=== PATIENT | male | born 1970 | race Caucasian/White ===

== ENCOUNTER 2024-07-27 15:45 | Emergency (ER) | payer OTHER ==
--- OUTSIDE RECORDS SUMMARY | 2024-07-27 15:48 | XMS REPORT | Continuity of Care Document ---
Author Name Unknown Address [address] [facility] [address] [id number] [facility] thconnect Address [address] [facility] [address] [place] [address] Care Team Providers Care Accounts Payables Clerk Name Role Phone PEDRO KENNEDY Attending Clinician UnavailKALLI Hassan Attending Clinician Unavailable EMIR HAJI Attending Clinician Unavailable MILE LIEBERMAN Attending Clinician Unavailable Alma Attending Clinician Unavailable Gaye Attending Clinician Unavailable Alma Admitting Clinician Unavailable Gaye Admitting Clinician Unavailable Payers Payer Name Policy Type Policy Number Effective Date Expirati on Date Source [facility] [id number] 2018 00:00:00 Problems Condition Name Condition Details Condition Category Status Onset Date Resolution Date Last Treatment Date Treating Clinician Comments Source Acute exacerbati on of chronic obstructiv e pulmonary disease Acute Exacerbati on of Chronic Obstructiv e Pulmonary Disease Problem Active 2023-06 00:00: 00 [facility] Mild chronic obstructiv e pulmonary disease Mild Chronic Obstructiv e Pulmonary Disease Problem Active 2023-06 00:00: 00 [facility] Snoring Snoring Problem Active 2023-06 00:00: 00 [facility] Acute cough Acute Cough Problem Active 2023-06 00:00: 00 [facility] Wheezing Wheezing Problem Active - 00:00: 00 [facility] Cough Cough Problem Active 09-27 00:00: 00 [facility] Acute bronchitis Acute Bronchitis Problem Active 2- 00:00: 00 [facility] Acute bacterial bronchitis Acute Bacterial Bronchitis Problem Active 2022-06- 00:00: 00 [facility] Cyst of skin Cyst of Skin Problem Active 2022-06 00:00: 00 [facility] Social History Smoking Status Start Date Stop Date Source Never Smoker [facility] Medications Ordered Medication Name Filled Medication Name Start Date Stop Date Current Medication? Ordering Clinician Indication Dosage Frequency Signature (SIG) Comments Components Source albuterol sulfate 2.5 mg/3 mL (0.083 %) solution for nebulizatio n Inhale 3 mL every 6 hours by nebulizatio n route as needed. albuterol sulfate 2.5 mg/3 mL (0.083 %) solution for nebulizatio n Inhale 3 mL every 6 hours by nebulizatio n route as needed. No 3mL Q6H albuterol sulfate 2.5 mg/3 mL (0.083 %) solution for nebulizati on Inhale 3 mL every 6 hours by nebulizati on route as needed. [facility] doxycycline monohydrate 100 mg capsule Take 1 capsule twice a day by oral route for 10 days. doxycycline monohydrate 100 mg capsule Take 1 capsule twice a day by oral route for 10 days. No 1capsul e(s) BID doxycyclin e monohydrat e 100 mg capsule Take 1 capsule twice a day by oral route for 10 days. [facility] fluticasone 500 mcg-salmete rol 50 mcg/dose blistr powdr for inhalation Inhale 1 puff twice a day by inhalation route for 90 days. fluticasone 500 mcg-salmete rol 50 mcg/dose blistr powdr for inhalation Inhale 1 puff twice a day by inhalation route for 90 days. No 1puff(s ) BID fluticason e 500 mcg-salmet leonid 50 mcg/dose blistr powdr for inhalation Inhale 1 puff twice a day by inhalation route for 90 days. [facility] prednisone 20 mg tablet Take 1 tablet every day by oral route for 5 days. prednisone 20 mg tablet Take 1 tablet every day by oral route for 5 days. No 1 Q1D prednisone 20 mg tablet Take 1 tablet every day by oral route for 5 days. [facility] Immunizations Ordered Immunization Name Filled Immunization Name Date Status Comments Source COVID-19, mRNA, LNP-S, bivalent booster, PF, 30 mcg/0.3 mL dose (SecondLeap) - ML COVID-19, mRNA, LNP-S, bivalent booster, PF, 30 mcg/0.3 mL dose (SecondLeap) - ML Unknown Completed [facility] Vital Signs Vital Name Observation Time Observation Value Comments S ource Body Weight 2024-06-13 00:00:00 3352 [oz_av] [facility] BMI (Body Mass Index) 2024-06-13 00:00:00 30.1 kg/m2 [facility] BP Diastolic 2024-06-13 00:00:00 76 mm[Hg] [facility] BP Systolic 2024-06-13 00:00:00 143 mm[Hg] [facility] Height 2024-06-13 00:00:00 70 [in_i] [facility] BMI (Body Mass Index) 2024-04-19 00:00:00 30.1 kg/m2 [facility] BP Diastolic 2024-04-19 00:00:00 85 mm[Hg] [facility] Body Weight 2024-04-19 00:00:00 3360 [oz_av] [facility] BP Systolic 2024-04-19 00:00:00 143 mm[Hg] [facility] Height 2024-04-19 00:00:00 70 [in_i] [facility] Body Weight 2023-12-03 00:00:00 198 [lb_av] [facility] BMI (Body Mass Index) 2023-12-03 00:00:00 28.4 kg/m2 [facility] BP Diastolic 2023-12-03 00:00:00 82 mm[Hg] [facility] Height 2023-12-03 00:00:00 70 [in_i] [facility] BP Systolic 2023-12-03 00:00:00 121 mm[Hg] [facility] Body Weight 2023-11-02 00:00:00 208 [lb_av] [facility] BP Systolic 2023-11-02 00:00:00 125 mm[Hg] [facility] BP Diastolic 2023-11-02 00:00:00 87 mm[Hg] [facility] Height 2023-11-02 00:00:00 70 [in_i] [facility] BMI (Body Mass Index) 2023-11-02 00:00:00 29.8 kg/m2 [facility] Height 2023-10-15 00:00:00 70 [in_i] [facility] BP Systolic 2023-10-15 00:00:00 137 mm[Hg] [facility] BMI (Body Mass Index) 2023-10-15 00:00:00 30.1 kg/m2 [facility] Body Weight 2023-10-15 00:00:00 3351 [oz_av] [facility] BP Diastolic 2023-10-15 00:00:00 88 mm[Hg] [facility] BP Systolic 2023-09-28 00:00:00 138 mm[Hg] [facility] Height 2023-09-28 00:00:00 70 [in_i] [facility] Body Weight 2023-09-28 00:00:00 3335 [oz_av] [facility] BP Diastolic 2023-09-28 00:00:00 88 mm[Hg] [facility] BMI (Body Mass Index) 2023-09-28 00:00:00 29.9 kg/m2 [facility] Body Weight 2023-08-04 00:00:00 3376 [oz_av] [facility] BP Diastolic 2023-08-04 00:00:00 82 mm[Hg] [facility] BMI (Body Mass Index) 2023-08-04 00:00:00 30.3 kg/m2 [facility] Height 2023-08-04 00:00:00 70 [in_i] [facility] BP Systolic 2023-08-04 00:00:00 127 mm[Hg] [facility] Body Weight 2023-04-29 00:00:00 3305 [oz_av] [facility] BMI (Body Mass Index) 2023-04-29 00:00:00 29.6 kg/m2 [facility] Height 2023-04-29 00:00:00 70 [in_i] [facility] BP Systolic 2023-04-29 00:00:00 146 mm[Hg] [facility] BP Diastolic 2023-04-29 00:00:00 92 mm[Hg] [facility] BP Diastolic 2023-01-13 00:00:00 81 mm[Hg] [facility] Height 2023-01-13 00:00:00 70 [in_i] [facility] BMI (Body Mass Index) 2023-01-13 00:00:00 28.8 kg/m2 [facility] BP Systolic 2023-01-13 00:00:00 131 mm[Hg] [facility] Body Weight 2023-01-13 00:00:00 3208 [oz_av] [facility] BP Diastolic 2022-12-29 00:00:00 75 mm[Hg] [facility] Height 2022-12-29 00:00:00 70 [in_i] [facility] BMI (Body Mass Index) 2022-12-29 00:00:00 28.4 kg/m2 [facility] BP Systolic 2022-12-29 00:00:00 125 mm[Hg] [facility] Body Weight 2022-12-29 00:00:00 3168 [oz_av] [facility] BP Diastolic 2022-06-30 00:00:00 87 mm[Hg] [facility] Height 2022-06-30 00:00:00 70 [in_i] [facility] BMI (Body Mass Index) 2022-06-30 00:00:00 31.9 kg/m2 [facility] BP Systolic 2022-06-30 00:00:00 135 mm[Hg] [facility] Body Weight 2022-06-30 00:00:00 3560 [oz_av] [facility] BP Diastolic 2022-06-02 00:00:00 75 mm[Hg] [facility] Height 2022-06-02 00:00:00 70 [in_i] [facility] BMI (Body Mass Index) 2022-06-02 00:00:00 30.5 kg/m2 [facility] BP Systolic 2022-06-02 00:00:00 131 mm[Hg] [facility] Body Weight 2022-06-02 00:00:00 3400 [oz_av] [facility] Procedures Procedure Date / Time Performed Performing Clinician Source CT, chest, w/o contrast 2023-12-03 00:00:00 [facility] ECG WITH INTERPRETATION 12 LEADS 2023-10-15 00:00:00 [facility] XR, chest, 2 view 2023-10-15 00:00:00 [facility] XR, chest, 2 view 2023-09-28 00:00:00 [facility] XR, chest, 2 view 2022-12-29 00:00:00 [facility] XR, chest, 2 view 2022-06-02 00:00:00 [facility] Colonoscopy [facility] Encounters Start Date/Time End Date/Time Encounter Type Admission Type Attending Clinicians Care Facility Care Department Encounter ID Source 2024-07-15 21:30:00 Inpatient PEDRO MCCONNELL [facility] [id number] [facility] 2024-07-12 19:30:00 Inpatient ROEL PEDRO KENNEDY [facility] [id number] [facility] 2024-02-08 19:30:00 Inpatient KALLI VEGA [facility] [id number] [facility] 2023-12-17 13:00:00 Inpatient ROEL CINDI CHACKO [facility] [id number] [facility] 2023-11-17 08:45:00 Inpatient ROEL HAJI EMIR [facility] [id number] [facility] 2024-06-13 00:00:00 2024-06-13 00:00:00 Pedro Kennedy, MORGUE ATTENDANT: [address], [address], [place] [address] , [facility] 2024-04-19 00:00:00 2024-04-19 00:00:00 Mile Lieberman PA-C: [address], [address], [place] [address] , Ph. [facility] [id number] [facility] 2023-12-03 00:00:00 2023-12-03 00:00:00 Kalli Turner MD: [address] [place] [address] , Ph. [facility] 0613 [facility] 2023-12-01 06:42:00 2023-12-01 06:42:00 Outpatient EMIR HERNANDEZ [facility] [id number] [facility] 2023-11-02 00:00:00 2023-11-02 00:00:00 Emir Haji DO: [address], [address], [place] [address] , Ph. [phone] [facility] 0513 [facility] 2023-10-15 11:48:00 2023-10-15 11:48:00 Outpatient MILE LIU [facility] [id number] [facility] 2023-10-15 00:00:00 2023-10-15 00:00:00 Mile Lieberman PA-C: [address], [address], [place] [address] , Ph. [facility] 0425 [facility] 2023-09-28 00:00:00 2023-09-28 00:00:00 Pedro Kennedy, MORGUE ATTENDANT: [address] [facility] [address], [address], [place] [address] , Ph. Howie_M MMG [facility] [id number] [facility] 2023-08-04 00:00:00 2023-08-04 00:00:00 [place] [id number] [facility] 2023-08-04 00:00:00 2023-08-04 00:00:00 Pedro Kennedy, MORGUE ATTENDANT: [address] [facility], [address], [place] [address] , Ph. [facility] [id number] [facility] 2023-08-03 00:00:00 2023-08-03 00:00:00 [place] [id number] [facility] 2023-04-30 00:00:00 2023-04-30 00:00:00 Outpatient Hawkins_M MMG MMG [id number] [facility] 2023-04-29 00:00:00 2023-04-29 00:00:00 Pedro Kennedy, MORGUE ATTENDANT: [address] [facility], [address], [place] [address] , Ph. [facility] [id number] [facility] 2023-04-28 00:00:00 2023-04-28 00:00:00 Outpatient Koudela_A MMG MMG [id number] [facility] 2023-04-28 00:00:00 2023-04-28 00:00:00 Outpatient Koudela_A MMG MMG [id number] [facility] 2023-03-10 00:00:00 2023-03-10 00:00:00 Outpatient Koudela_A MMG MMG [id number] [facility] 2023-01-21 00:00:00 2023-01-21 00:00:00 Outpatient Koudela_A MMG MMG [id number] [facility] 2023-01-21 00:00:00 2023-01-21 00:00:00 Outpatient Koudela_A MMG MMG [id number] [facility] 2023-01-21 00:00:00 2023-01-21 00:00:00 Outpatient Koudela_A MMG MMG [id number] [facility] 2023-01-13 00:00:00 2023-01-13 00:00:00 Outpatient Koudela_A MMG MMG [id number] [facility] 2023-01-13 00:00:00 2023-01-13 00:00:00 Mile Lieberman PA-C: [address] [facility], [address] [address] , Ph. MMG [facility] [id number] [facility] 2023-01-12 00:00:00 2023-01-12 00:00:00 Outpatient Hawkins_M MMG MMG [id number] [facility] 2022-12-29 15:25:00 2022-12-29 15:25:00 Outpatient MILE LIU [facility] [id number] [facility] 2022-12-29 00:00:00 2022-12-29 00:00:00 Outpatient Hawkins_M MMG MMG [id number] [facility] 2022-12-29 00:00:00 2022-12-29 00:00:00 Mile Lieberman PA-C: [address] [facility], [address], [place] [address] , Ph. MMG [facility] [id number] [facility] 2022-06-30 00:00:00 2022-06-30 00:00:00 Outpatient Hawkins_M MMG MMG [id number] [facility] 2022-06-30 00:00:00 2022-06-30 00:00:00 Pedronathalia Dinero Howie, MORGUE ATTENDANT: [address] [facility] [address], [place] [address] , Ph. MMG [facility] [id number] [facility] 2022-06-29 00:00:00 2022-06-29 00:00:00 Outpatient Hawkins_M MMG MMG [id number] [facility] 2022-06-20 00:00:00 2022-06-20 00:00:00 Outpatient Hawkins_M MMG MMG [id number] [facility] 2022-06-20 00:00:00 2022-06-20 00:00:00 Outpatient Hawkins_M MMG MMG [id number] [facility] 2022-06-02 12:40:00 2022-06-02 12:40:00 Outpatient PEDRO VELASCO [facility] [id number] [facility] 2022-06-02 00:00:00 2022-06-02 00:00:00 Outpatient Minkins_M MMG MMG [id number] [facility] 2022-06-02 00:00:00 2022-06-02 00:00:00 Pedro Kennedy, MORGUE ATTENDANT: [address] [facility] [address], [place] [address] , Ph. MMG [facility] [id number] [facility] Results Test Description Test Time Test Comments Results Result Co mments Source [facility] and SARS-CoV+SARS-CoV-2 (COVID- 19) Ag panel - Upper respiratory specimen byRapid [id number] 16:43:06 * Test Item Value Reference Range Interpretation Comme nts RAPID SARS COV (test code = RAPID SARS COV) negative RAPID FLU A (test code = RAP ID FLU A) negative RAPID FLU B (test code = RAP ID FLU B) negative [facility] and SARS-CoV+SARS-CoV-2 (COVID- 19) Ag panel - Upper respiratory specimen byRapid [id number] 15:53:00 * Test Item Value Reference Range Interpretation Comme nts RAPID SARS COV (test code = RAPID SARS COV) negative RAPID FLU A (test code = RAP ID FLU A) negative RAPID FLU B (test code = RAP ID FLU B) negative [facility] and B and SARS-CoV+SARS-CoV-2 (COVID- 19) Ag panel - Upper respiratory specimen byRapid [id number] 12:25:39 * Test Item Value Reference Range Interpretation Comme nts RAPID SARS COV (test code = RAPID SARS COV) negative RAPID FLU A (test code = RAP ID FLU A) negative RAPID FLU B (test code = RAP ID FLU B) negative [facility] st[facility] A, [id number] 12:25:32* Test Item Value Reference Range Interpretation Comme nts Strep Result (test code = St rep Result) negative [facility]
[2024-07-27 16:45] LABS: SARS-CoV-2 Antigen CONTROL BLUE LINE VIS/BG OK; SARS-CoV-2 Antigen Rapid Res Negative (Negative)
--- NOTE | 2024-07-27 16:59 | RAD REPORT ---
EXAMINATION: TWO VIEW CHEST XR CLINICAL INDICATION: Male, 53 years old. [facility] MAIN COUGH Bed Name: 3 TECHNIQUE: 2 view radiographs of the chest were performed. COMPARISON: No prior exam. FINDINGS: The lungs are well inflated and clear. No pneumothorax or sizable effusion. The heart is normal in si ze. Mediastinal contours are unremarkable. IMPRESSION: No acute or significant abnormalities.
--- NOTE | 2024-07-27 17:15 | ER ---
Nurse's Notes [facility] Name: Homer Cuenca Age: 53 yrs Sex: Male : 1970 Arrival Date: 07/27/2024 Time: 15:45 Bed IW1 Private MD: Diagnosis: Influenza due to identified novel influenza A virus Presentation: 07/27 15:53 Chief complaint: Patient states: Cough onset Thursday. Pt states that his has the cm10 flu. Pt states that his cough not getting better. PT reports pain in his chest when he coughs. Coronavirus screen: Client denies travel out of the [place] in the last 14 days. Ebola Screen: Patient denies travel to an Ebola-affected area in the 21 days before illness onset. Initial Sepsis Screen: Does the patient meet any 2 criteria? HR > 90 bpm. Does the patient have a suspected source of infection? No. Patient's initial sepsis screen is negative. Risk Assessment: Do you want to hurt yourself or someone else? Patient reports no desire to harm self or others. Onset of symptoms was July 24, 2024. 15:53 Method Of Arrival: Ambulatory cm10 15:53 Acuity: KATRINA 3 cm10 Triage Assessment: 15:55 General: Appears in no apparent distress. uncomfortable, Behavior is calm, cooperative. cm10 Pain: Complains of pain in chest Pain does not radiate. Pain currently is 8 out of 10 on a pain scale. Neuro: No deficits noted. Level of Consciousness is awake, alert, obeys commands, Oriented to person, place, time, situation, Appropriate for age. Respiratory: No deficits noted. Reports cough that is pain with cough pain with respiration Airway is patent Respiratory effort is even, unlabored, Respiratory pattern is regular, symmetrical. Historical: - Allergies: 15:54 No Known Allergies; cm10 - PMHx: 15:54 Asthma; Chronic obstructive lung disease; cm10 - Immunization history:: Adult Immunizations unknown. - Infectious Disease History:: Denies. - Social history:: Smoking status: unknown. Screenin:33 [facility] ED Fall Risk Assessment (Adult) History of falling in the last 3 months, iw including since admission No falls in past 3 months (0 pts) Confusion or Disorientation No (0 pts) Intoxicated or Sedated No (0 pts) Impaired Gait No (0 pts) Mobility Assist Device Used No (0 pt) Altered Elimination No (0 pt) Score/Fall Risk Level 0 - 2 = Low Risk Oriented to surroundings, Maintained a safe environment. Abuse screen: Denies threats or abuse. Denies injuries from another. Nutritional screening: No deficits noted. Tuberculosis screening: No symptoms or risk factors identified. Assessment: 17:00 General: Appears in no apparent distress. Behavior is calm, cooperative. Pain: Pain iw began. Pain: Complains of pain in chest. Cardiovascular: Patient's skin is warm and dry. Respiratory: Reports cough that is Respiratory effort is even, unlabored, Respiratory pattern is regular. GI: Abdomen is non-distended. Vital Signs: 15:53 BP 147 / 92; Pulse 112; Resp 19; Temp 100(O); Pulse Ox 95% on R/A; Weight 92.99 kg; cm10 Height 5 ft. 10 in. ; Pain 8/10; 15:53 Body Mass Index 29.41 (92.99 kg, 177.8 cm) cm10 15:53 Pain Scale: Adult cm10 ED Course: 15:48 Patient arrived in ED. al6 15:50 Thi Webb [facility]-C [facility]. kb 15:50 Jhon Escalante MD is Attending Physician. kb 15:54 Triage completed. cm10 15:55 Arm band placed on right wrist. Patient placed in waiting room. cm10 16:03 Strep Sent. cm10 16:03 SARS RAPID Sent. cm10 16:03 Flu Sent. cm10 16:03 COVID swab sent to lab. Flu and/or RSV swab sent to lab. Strep swab sent to lab. cm10 16:13 Chest Pa And Lat (2 Views) XRAY In Process Unspecified. EDMS 17:33 Radha Krueger, RN is Primary Nurse. iw 17:33 No provider procedures requiring assistance completed. Patient did not have IV access iw during this emergency room visit. Patient maintains SpO2 saturation greater than 95% on room air. Administered Medications: No medications were administered Medication: 17:00 VIS not applicable for this client. iw Outcome: 17:15 Discharge ordered by . kb 17:34 Discharged to home ambulatory, iw 17:34 Condition: good 17:34 Discharge instructions given to patient, Instructed on discharge instructions, follow up and referral plans. Demonstrated understanding of instructions, follow-up care, 17:34 Patient left the ED. iw Signatures: Dispatcher [employer] Thi Ferreira, IVONNE-C STAKE SETTER-Radha Deluca RN RN iw Martinez, Clarissa, RN RN cmChristine Pardo6
--- NOTE | 2024-07-27 17:15 | EDPHYS ---
Physician Documentation [facility] Name: Homer Cuenca Age: 53 yrs Sex: Male : 1970 Arrival Date: 07/27/2024 Time: 15:45 Bed IW1 Private MD: ED Physician Jhon Escalante HPI: 07/27 18:14 This 53 yrs old Male presents to ER via Ambulatory with complaints of Flu Symptoms, kb Fever, Chest Pain. 18:14 Pt is a 53 year old male who presents for cough, congestion, pain with cough, fever, kb chills and bodyaches that started 4 days ago. has also been sick with similar symptoms. Historical: - Allergies: 15:54 No Known Allergies; cm10 - PMHx: 15:54 Asthma; Chronic obstructive lung disease; cm10 - Immunization history:: Adult Immunizations unknown. - Infectious Disease History:: Denies. - Social history:: Smoking status: unknown. ROS: 17:53 Constitutional: As per HPI kb Exam: 17:53 Constitutional: This is a well developed, well nourished patient who is awake, alert, kb and in no acute distress. Head/Face: Normocephalic, atraumatic. ENT: Moist Mucous membranes Cardiovascular: Regular rate Respiratory: Respirations even and unlabored. No increased work of breathing. Talking in full sentences Abdomen/GI: Soft, non-tender. No distention Skin: Warm, dry with normal turgor. Normal color. MS/ Extremity: Pulses equal, no cyanosis. Neurovascular intact. Full, normal range of motion. Neuro: Awake and alert, GCS 15, oriented to person, place, time, and situation. Vital Signs: 15:53 BP 147 / 92; Pulse 112; Resp 19; Temp 100(O); Pulse Ox 95% on R/A; Weight 92.99 kg; cm10 Height 5 ft. 10 in. ; Pain 8/10; 15:53 Body Mass Index 29.41 (92.99 kg, 177.8 cm) cm10 15:53 Pain Scale: Adult cm10 MDM: 15:50 Medical Screening Exam initiated kb 17:53 Data reviewed: vital signs, nurses notes. kb 18:14 Differential diagnosis: flu, covid, uri, strep, pneumonia, bronchitis. I considered the kb following discharge prescriptions or medication management in the emergency department I discussed and recommended Over The Counter medications, Antibiotics: At this time antibiotics are not recommended, Antivirals: At this time, antivirals are not recommended. Historians other than the Patient: Spouse/Significant Other: . Counseling: I had a detailed discussion with the patient and/or guardian regarding the historical points, exam findings, and any diagnostic results supporting the discharge/admit diagnosis, the presence of at least one elevated blood pressure reading (>120/80) during this emergency department visit, lab results, radiology results, the need for outpatient follow up, a family practitioner, to return to the emergency department if symptoms worsen or persist or if there are any questions or concerns that arise at home. 07/27 15:58 Order name: Flu; Complete Time: 16:46 cm10 07/27 15:58 Order name: SARS RAPID; Complete Time: 16:46 cm10 07/27 15:58 Order name: Strep cm10 07/27 16:48 Order name: Throat Culture EDMS 07/27 15:58 Order name: Chest Pa And Lat (2 Views) XRAY; Complete Time: 17:00 cm10 Administered Medications: No medications were administered Disposition Summary: 07/27/24 17:15 Discharge Ordered Notes: Location: Home kb Condition: Stable kb Diagnosis - Influenza due to identified novel influenza A virus kb Followup: kb - With: Emergency Department - When: As needed - Reason: Worsening of condition Followup: kb - With: Private Physician - When: 2 - 3 days - Reason: Recheck today's complaints, Continuance of care, Re-evaluation by your physician Discharge Instructions: - Discharge Summary Sheet kb - Influenza, Adult, [id number] kb Forms: - Medication Reconciliation Form kb - Antibiotic Education kb - Prescription Opioid Use kb - Patient Portal Instructions kb - Leadership Thank You Letter kb Addendum: 07/29/2024 23:22 Co-signature as Attending Physician, Jhon Escalante MD I agree with the assessment and c alexandre plan of care. Signatures: Dispatcher [employer] Thi Ferreira, DECORATING KILN OPERATOR-C DECORATING KILN OPERATOR-Jhon Patino MD MD cha Martinez, Clarissa, RN RN cm10
[2024-07-27 17:52] VITALS: BP 147/92; TEMP 100; O2SAT 95
== END 2024-07-27 17:34 | disposition home or self-care (01) ==
LOC: ER 15:45
DX: J10.1 Influenza due to other identified influenza virus with other respiratory manifestations (principal); J44.9 Chronic obstructive pulmonary disease, unspecified; Z11.52 Encounter for screening for COVID-19
CPT/HCPCS: 36415; 71046; 87070; 87081; 87804; 87811; 99283

== ENCOUNTER 2024-09-06 09:20 | Emergency (ER) | payer OTHER ==
--- OUTSIDE RECORDS SUMMARY | 2024-09-06 09:24 | XMS REPORT | Continuity of Care Document ---
Author Name Unknown Address [address] [place] [address] [address] [place] [address] [facility] Address [address] [place] [address] [address] [place] [address] Care Team Providers Care Scheduling Agent Name Role Phone JENELLE KENNEDY Attending Clinician UnavailKALLI Hassan Attending Clinician Unavailable EMIR HAJI Attending Clinician Unavailable FIONA LIEBERMAN Attending Clinician Unavailable Alma Attending Clinician Unavailable Gaye Attending Clinician Unavailable Alma Admitting Clinician Unavailable Gaye Admitting Clinician Unavailable Payers Payer Name Policy Type Policy Number Effective Date Expirati on Date Source [facility] [id number] 2018 00:00:00 Problems Condition Name Condition Details Condition Category Status Onset Date Resolution Date Last Treatment Date Treating Clinician Comments Source Fever with chills Fever with Chills Problem Active 2- 00:00: 00 [facility] Tobacco dependence caused by chewing tobacco Tobacco Dependence Caused by Chewing Tobacco Problem Active 2- 00:00: 00 [facility] Nicotine-f illed electronic cigarette user Nicotine-f illed Electronic Cigarette User Problem Active - 00:00: 00 [facility] Tobacco dependence caused by cigarettes Tobacco Dependence Caused by Cigarettes Problem Active 2- 00:00: 00 [facility] Influenza caused by Influenza A virus Influenza Caused by Influenza a Virus Problem Active 2- 00:00: 00 [facility] Obstructiv e sleep apnea syndrome Obstructiv e Sleep Apnea Syndrome Problem Active 2-05 00:00: 00 [facility] Acute exacerbati on of chronic obstructiv e pulmonary disease Acute Exacerbati on of Chronic Obstructiv e Pulmonary Disease Problem Active 2023-06 00:00: 00 [facility] Mild chronic obstructiv e pulmonary disease Mild Chronic Obstructiv e Pulmonary Disease Problem Active 2023-06 00:00: 00 [facility] Snoring Snoring Problem Active 2023-06 00:00: 00 [facility] Acute cough Acute Cough Problem Active 2023-06 00:00: 00 [facility] Wheezing Wheezing Problem Active 09-27 00:00: 00 [facility] Cough Cough Problem Active 08 00:00: 00 [facility] Acute bronchitis Acute Bronchitis Problem Active 08-04 00:00: 00 [facility] Acute bacterial bronchitis Acute Bacterial Bronchitis Problem Active 2022-06 00:00: 00 [facility] Cyst of skin Cyst of Skin Problem Active 2022-06 00:00: 00 [facility] Social History Smoking Status Start Date Stop Date Source Never Smoker [facility] Medications Ordered Medication Name Filled Medication Name Start Date Stop Date Current Medication? Ordering Clinician Indication Dosage Frequency Signature (SIG) Comments Components Source ipratropium 0.5 mg-albutero l 3 mg (2.5 mg base)/3 mL nebulizatio n solnInhale 3 mL by nebulizatio n route. ipratropium 0.5 mg-albutero l 3 mg (2.5 mg base)/3 mL nebulizatio n solnInhale 3 mL by nebulizatio n route. 08-01 11:54: 00 No 3mL Q4H ipratropiu m 0.5 mg-albuter ol 3 mg (2.5 mg base)/3 mL nebulizati on solnInhale 3 mL by nebulizati on route. [facility] albuterol sulfate 2.5 mg/3 mL (0.083 %) [...] hours by nebulizati on route as needed. [facility] Wixela Inhub 500 mcg-50 mcg/dose powder for inhalation Inhale 1 puff twice a day by inhalation route for 90 days. [facility] Inhub 500 mcg-50 mcg/dose powder for inhalation Inhale 1 puff twice a day by inhalation route for 90 days. No 1puff(s ) BID [facility] Inhub 500 mcg-50 mcg/dose powder for inhalation Inhale 1 puff twice a day by inhalation route for 90 days. [facility] Immunizations Ordered Immunization Name Filled Immunization Name Date Status Comments Source COVID-19, mRNA, LNP-S, bivalent booster, PF, 30 mcg/0.3 mL dose (Hooptap) - ML COVID-19, mRNA, LNP-S, bivalent booster, PF, 30 mcg/0.3 mL dose ([employer]) - ML Unknown [facility] Vital Signs Vital Name Observation Time Observation Value Comments S ource BMI (Body Mass Index) 2024-08-01 00:00:00 29.1 kg/m2 [facility] BP Systolic 2024-08-01 00:00:00 134 mm[Hg] [facility] Height 2024-08-01 00:00:00 70 [in_i] [facility] BP Diastolic 2024-08-01 00:00:00 82 mm[Hg] [facility] Body Weight 2024-08-01 00:00:00 3248 [oz_av] [facility] Body Weight 2024-06-13 00:00:00 3352 [oz_av] [facility] BMI (Body Mass Index) 2024-06-13 00:00:00 30.1 kg/m2 [facility] BP Diastolic 2024-06-13 00:00:00 76 mm[Hg] [facility] BP Systolic 2024-06-13 00:00:00 143 mm[Hg] [facility] Height 2024-06-13 00:00:00 70 [in_i] [facility] BMI (Body Mass Index) 2024-04-19 00:00:00 30.1 kg/m2 [facility] BP Diastolic 2024-04-19 00:00:00 85 mm[Hg] [facility] Body Weight 2024-04-19 00:00:00 3360 [oz_av] [facility] BP Systolic 2024-04-19 00:00:00 143 mm[Hg] [facility] Height 2024-04-19 00:00:00 70 [in_i] [facility] Body Weight 2023-12-03 00:00:00 198 [lb_av] [facility] BMI (Body Mass Index) 2023-12-03 00:00:00 28.4 kg/m2 [facility] BP Diastolic 2023-12-03 00:00:00 [...] (Body Mass Index) 2023-11-02 00:00:00 29.8 kg/m2 [facility] Height 2023-10-15 00:00:00 70 [in_i] [facility] BP Systolic 2023-10-15 00:00:00 137 mm[Hg] [facility] BMI (Body Mass Index) 2023-10-15 00:00:00 30.1 kg/m2 [facility] Body Weight 2023-10-15 00:00:00 3351 [oz_av] [facility] BP Diastolic 2023-10-15 00:00:00 88 mm[Hg] [facility] BP Systolic 2023-09-28 00:00:00 138 mm[Hg] [facility] Height 2023-09-28 00:00:00 70 [in_i] [facility] Body Weight 2023-09-28 00:00:00 3335 [oz_av] [facility] BP Diastolic 2023-09-28 00:00:00 88 mm[Hg] [facility] BMI (Body Mass Index) 2023-09-28 00:00:00 29.9 kg/m2 [facility] Body Weight 2023-08-04 00:00:00 3376 [oz_av] [facility] BP Diastolic 2023-08-04 00:00:00 82 mm[Hg] [facility] BMI (Body Mass Index) 2023-08-04 00:00:00 30.3 kg/m2 [facility] Height 2023-08-04 00:00:00 70 [in_i] [facility] BP Systolic 2023-08-04 00:00:00 127 mm[Hg] [facility] Body Weight 2023-04-29 00:00:00 3305 [oz_av] [facility] BMI (Body Mass Index) 2023-04-29 00:00:00 29.6 kg/m2 [facility] Height 2023-04-29 00:00:00 70 [in_i] [facility] BP Systolic 2023-04-29 00:00:00 146 mm[Hg] [facility] BP Diastolic 2023-04-29 00:00:00 92 mm[Hg] [facility] BP Diastolic 2023-01-13 00:00:00 81 mm[Hg] [facility] Height 2023-01-13 00:00:00 70 [in_i] [facility] BMI (Body Mass Index) 2023-01-13 00:00:00 28.8 kg/m2 [facility] BP Systolic 2023-01-13 00:00:00 131 mm[Hg] [facility] Body Weight 2023-01-13 00:00:00 3208 [oz_av] [facility] BP Diastolic 2022-12-29 00:00:00 75 mm[Hg] [facility] Height 2022-12-29 00:00:00 70 [in_i] [facility] BMI (Body Mass Index) 2022-12-29 00:00:00 28.4 kg/m2 [facility] BP Systolic 2022-12-29 00:00:00 125 mm[Hg] [facility] Body Weight 2022-12-29 00:00:00 3168 [oz_av] [facility] BP Diastolic 2022-06-30 00:00:00 87 mm[Hg] [facility] Height 2022-06-30 00:00:00 70 [in_i] [facility] BMI (Body Mass Index) 2022-06-30 00:00:00 31.9 kg/m2 [facility] BP Systolic 2022-06-30 00:00:00 135 mm[Hg] [facility] Body Weight 2022-06-30 00:00:00 3560 [oz_av] [facility] BP Diastolic 2022-06-02 00:00:00 75 mm[Hg] [facility] Height 2022-06-02 00:00:00 70 [in_i] [facility] BMI (Body Mass Index) 2022-06-02 00:00:00 30.5 kg/m2 [facility] BP Systolic 2022-06-02 00:00:00 131 mm[Hg] [facility] Body Weight 2022-06-02 00:00:00 3400 [oz_av] [facility] Procedures Procedure Date / Time Performed Performing Clinician Source XR, chest, 2 view 2024-08-01 [facility], [facility]/o contrast 2023-12-03 00:00:00 [facility] ECG WITH INTERPRETATION 12 LEADS 2023-10-15 00:00:00 [facility] XR, chest, 2 view 2023-10-15 00:00:00 [facility] XR, chest, 2 view 2023-09-28 00:00:00 [facility] XR, chest, 2 view 2022-12-29 00:00:00 [facility] XR, chest, 2 view 2022-06-02 00:00:00 [facility] Colon[facility] Encounters Start Date/Time End Date/Time Encounter Type Admission Type Attending [facility] Care Department Encounter ID Source 2024-07-15 21:30:00 Inpatient JENELLE MCCONNELL [facility] [id number] [facility] 2024-07-12 19:30:00 Inpatient JENELLE MCCONNELL [facility] [id number] [facility] 2024-02-08 19:30:00 Inpatient KALLI VEGA [facility] [id number] [facility] 2023-12-17 13:00:00 Inpatient KALLI VEGA [facility] [id number] [facility] 2023-11-17 08:45:00 Inpatient EMIR HERNANDEZ [facility] [id number] [facility] 2024-08-01 10:44:00 2024-08-01 10:44:00 Outpatient JENELLE VELASCO [facility] [id number] [facility] 2024-08-01 00:00:00 2024-08-01 00:00:00 Jenelle Kennedy, POLICE JUSTICE: [address] [facility] [address], [address], [place] [address] , Ph. [facility] [id number] [facility] 2024-06-13 00:00:00 2024-06-13 00:00:00 Jenelle Kennedy, POLICE JUSTICE: [address], [address], [place] [address] , Ph. [facility] 1223 [facility] 2024-04-19 00:00:00 2024-04-19 00:00:00 Fiona Lieberman PA-C: [address], [address], [place] [address] , Ph. [facility] [id number] 1029 [facility] 2023-12-03 00:00:00 2023-12-03 00:00:00 Kalli Turner MD: [address], [place] [address] , [facility] 2023-12-01 06:42:00 2023-12-01 06:42:00 Outpatient EMIR HERNANDEZ [facility] [id number] [facility] 2023-11-02 00:00:00 2023-11-02 00:00:00 Emir Haji DO: [address], [address], [place] [address] , Ph. [phone] [facility] 0513 [facility] 2023-10-15 11:48:00 2023-10-15 11:48:00 Outpatient FIONA LIU [facility] [id number] [facility] 2023-10-15 00:00:00 2023-10-15 00:00:00 Fiona Lieberman PA-C: [address], [address], [place] [address] , Ph. [facility] 0425 [facility] 2023-09-28 00:00:00 2023-09-28 00:00:00 Jenelle Kennedy, POLICE JUSTICE: [address] [facility], [address], [place] [address] , Ph. Howie_M [facility] [id number] [facility] 2023-08-04 00:00:00 2023-08-04 00:00:00 [place] [id number] [facility] 2023-08-04 00:00:00 2023-08-04 00:00:00 Jenelle Kennedy, POLICE JUSTICE: [address] [facility], [address], [place] [address] , Ph. [facility] [id number] [facility] 2023-08-03 00:00:00 2023-08-03 00:00:00 [place] [id number] [facility] 2023-04-30 00:00:00 2023-04-30 00:00:00 [place] [id number] [facility] 2023-04-29 00:00:00 2023-04-29 00:00:00 Jenelle Kennedy, POLICE JUSTICE: [address] [facility], [address], [place] [address] , Ph. [facility] [id number] [facility] 2023-04-28 00:00:00 2023-04-28 00:00:00 Outpatient Koudela_A MMG MMG [id number] [facility] 2023-04-28 00:00:00 2023-04-28 00:00:00 Outpatient Koudela_A MMG MMG [id number] [facility] 2023-03-10 00:00:00 2023-03-10 00:00:00 Outpatient Koudela_A MMG MMG [id number] [facility] 2023-01-21 00:00:00 2023-01-21 00:00:00 Outpatient Koudela_A MMG MMG [id number] [facility] 2023-01-21 00:00:00 2023-01-21 00:00:00 Outpatient Koudela_A MMG MMG [id number] [facility] 2023-01-21 00:00:00 2023-01-21 00:00:00 Outpatient Koudela_A MMG MMG [id number] [facility] 2023-01-13 00:00:00 2023-01-13 00:00:00 Outpatient Koudela_A MMG MMG [id number] [facility] 2023-01-13 00:00:00 2023-01-13 00:00:00 Fiona Lieberman PA-C: [address] [facility], [address] [address] , Ph. [facility] [id number] [facility] 2023-01-12 00:00:00 2023-01-12 00:00:00 Outpatient Hawkins_M MMG MMG [id number] [facility] 2022-12-29 15:25:00 2022-12-29 15:25:00 Outpatient FIONA LIU [facility] [id number] [facility] 2022-12-29 00:00:00 2022-12-29 00:00:00 [place] [id number] [facility] 2022-12-29 00:00:00 2022-12-29 00:00:00 Fiona Lieberman PA-C: [address] [facility], [address], [place] [address] , Ph. MM[facility] [id number] [facility] 2022-06-30 00:00:00 2022-06-30 00:00:00 Outpatient Hawkins_M MMG MMG [id number] [facility] 2022-06-30 00:00:00 2022-06-30 00:00:00 Jenelle Gonzaleze Howie, POLICE JUSTICE: [address] [facility] [address], [place] [address] , Ph. MM[facility] [id number] [facility] 2022-06-29 00:00:00 2022-06-29 00:00:00 Outpatient Hawkins_M MMG MMG [id number] [facility] 2022-06-20 00:00:00 2022-06-20 00:00:00 Outpatient Hawkins_M MMG MMG [id number] [facility] 2022-06-20 00:00:00 2022-06-20 00:00:00 Outpatient Hawkins_M MMG MMG [id number] [facility] 2022-06-02 12:40:00 2022-06-02 12:40:00 Outpatient JENELLE VELASCO [facility] [id number] [facility] 2022-06-02 00:00:00 2022-06-02 00:00:00 Outpatient Hawkins_M MMG MMG [id number] [facility] 2022-06-02 00:00:00 2022-06-02 00:00:00 Jenelle Kennedy, POLICE JUSTICE: [address] [facility] [address], [place] [address] , Ph. MM[facility] [id number] [facility] Results Test Description Test Time Test Comments Results Result Co mments Source [facility] and SARS-CoV+SARS-CoV-2 (COVID- 19) Ag panel - Upper respiratory specimen byRapid [id number] 15:42:09 * Test Item Value Reference Range Interpretation Comme nts RAPID SARS COV (test code = RAPID SARS COV) negative RAPID FLU A (test code = RAP ID FLU A) negative RAPID FLU B (test code = RAP ID FLU B) negative [facility] and B and SARS-CoV+SARS-CoV-2 (COVID- 19) Ag panel - Upper respiratory specimen byRapid [id number] 16:43:06 * Test Item Value Reference Range Interpretation Comme nts RAPID SARS COV (test code = RAPID SARS COV) negative RAPID FLU A (test code = RAP ID FLU A) negative RAPID FLU B (test code = RAP ID FLU B) negative [facility] and SARS-CoV+SARS-CoV-2 (COVID- 19) Ag panel - Upper respiratory specimen byRapid [id number] 15:53:00 * Test Item Value Reference Range Interpretation Comme [facility] RAPID SARS COV (test code = RAPID SARS COV) negative RAPID FLU A (test code = RAP ID FLU A) negative RAPID FLU B (test code = RAP ID FLU B) negative [facility] virus A and B and SARS-CoV+SARS-CoV-2 (COVID- 19) Ag panel - Upper respiratory specimen byRapid [id number] 12:25:39 * Test Item Value Reference Range Interpretation Comme [facility] RAPID SARS COV (test code = RAPID SARS COV) negative RAPID FLU A (test code = RAP ID FLU A) negative RAPID FLU B (test code = RAP ID FLU B) negative [facility] strep [facility] A, [id number] 12:25:32* Test Item Value Reference Range Interpretation Comme nts Strep Result (test code = St rep Result) negative [facility]
[2024-09-06] MEDS ORDERED: LIDOCAINE 2% W/EPI 1:200,000 MPF 20 ML VIAL IM ONE (10:30)
--- NOTE | 2024-09-06 10:59 | RAD REPORT ---
EXAM: CT brain without contrast HISTORY: Head injury. COMPARISON: None TECHNIQUE: Multiple contiguous axial images were obtained and a CT of the brain without contrast.. Sagittal and coronal reconstruction performed. Automated exposure control, adjustment of the mA and/or kV according to patient size, and/or iterative reconstruction. Unless otherwise specified, incidental f indings do not require dedicated imaging follow-up FINDINGS: An intracranial bleed is not seen Ventricles are normal caliber No extra-axial fluid collection noted No significant hypodensity within the brain Opacification of the sinuses presumably sinusitis. IMPRESSION: No acute intracranial abnormality noted. If the patient continues to have symptoms to suggest an acute intracranial abnormality then MRI of th e brain would be recommended.
--- NOTE | 2024-09-06 11:59 | EDPHYS ---
Physician Documentation [facility] Name: Homer Cuenca Age: 53 yrs Sex: Male : 1970 Arrival Date: 09/06/2024 Time: 09:20 Bed 10 Private MD: ED Physician Hossein Salmon HPI: 09/06 16:43 This 53 yrs old Male presents to ER via Ambulatory with complaints of Laceration To jj9 Forehead. 11:52 53-year-old man comes emergency department for evaluation of laceration to the right jj9 forehead. The patient accidentally hit with laceration and bleeding. He denies LOC pain is significant. He denies any other problems. The hitch of fifth cunningham. Historical: - Allergies: 10:14 No Known Allergies; hb - PMHx: 10:14 Asthma; Chronic obstructive lung disease; hb - PSHx: 10:14 None; hb - Immunization history:: Adult Immunizations up to date. - Infectious Disease History:: Denies. - Social history:: Smoking status: Patient denies any tobacco usage or history of. ROS: 11:53 Constitutional: Negative for fever, chills, and weight loss, Eyes: Negative for injury, jj9 pain, redness, and discharge, ENT: Negative for injury, pain, and discharge, Neck: Negative for injury, pain, and swelling, Cardiovascular: Negative for chest pain, palpitations, and edema, Respiratory: Negative for shortness of breath, cough, wheezing, and pleuritic chest pain, Abdomen/GI: Negative for abdominal pain, nausea, vomiting, diarrhea, and constipation, Back: Negative for injury and pain, : Negative for injury, bleeding, discharge, and swelling, MS/Extremity: Negative for injury and deformity, Skin: Negative for injury, rash, and discoloration, Neuro: Headache Psych: Negative for depression, anxiety, suicide ideation, homicidal ideation, and hallucinations, Allergy/Immunology: Negative for hives, rash, and allergies, Endocrine: Negative for neck swelling, polydipsia, polyuria, polyphagia, and marked weight changes, Hematologic/Lymphatic: Negative for swollen nodes, abnormal bleeding, and unusual bruising, Exam: 11:53 Constitutional: This is a well developed, well nourished patient who is awake, alert, jj9 and in no acute distress. Head/Face: There is a 4 cm laceration right forehead jagged edges mildly contaminated no significant bleeding Eyes: Pupils equal round and reactive to light, extra-ocular motions intact. Lids and lashes normal. Conjunctiva and sclera are non-icteric and not injected. Cornea within normal limits. Periorbital areas with no swelling, redness, or edema. ENT: Nares patent. No nasal discharge, no septal abnormalities noted. Tympanic membranes are normal and external auditory canals are clear. Oropharynx with no redness, swelling, or masses, exudates, or evidence of obstruction, uvula midline. Mucous membranes moist. Neck: Trachea midline, no thyromegaly or masses palpated, and no cervical lymphadenopathy. Supple, full range of motion without nuchal rigidity, or vertebral point tenderness. No Meningismus. Chest/axilla: Normal chest wall appearance and motion. Nontender with no deformity. No lesions are appreciated. Cardiovascular: Regular rate and rhythm with a normal S1 and S2. No gallops, murmurs, or rubs. Normal PMI, no JVD. No pulse deficits. Respiratory: Lungs have equal breath sounds bilaterally, clear to auscultation and percussion. No rales, rhonchi or wheezes noted. No increased work of breathing, no retractions or nasal flaring. Abdomen/GI: Soft, non-tender, with normal bowel sounds. No distension or tympany. No guarding or rebound. No evidence of tenderness throughout. Back: No spinal tenderness. No costovertebral tenderness. Full range of motion. Skin: Warm, dry with normal turgor. Normal color with no rashes, no lesions, and no evidence of cellulitis. Vital Signs: 10:12 BP 122 / 88; Pulse 67; Resp 16; Temp 98.3(O); Pulse Ox 100% ; Weight 92.99 kg; Height 5 hb ft. 10 in. ; Pain 7/10; 12:00 BP 135 / 88; Pulse 65; Resp 15; Pulse Ox 100% ; jl7 10:12 Body Mass Index 29.41 (92.99 kg, 177.8 cm) hb 10:12 Pain Scale: Adult hb Laceration: 11:54 Wound Repair of 4cm ( 1.6in ) subcutaneous laceration to face. Distal jj9 neuro/vascular/tendon intact. Anesthesia: Wound infiltrated with 5 mls of 1% lidocaine w/ Epi. Wound prep: Wound irrigation with saline by me. Skin closed with 3 4-0 Prolene using simple sutures and sterile technique. Dressed with Bacitracin. Patient tolerated well. MDM: 10:15 Medical Screening Exam initiated jj9 11:55 Differential diagnosis: superficial laceration, Skull fracture, head bleed, etc. Data jj9 reviewed: vital signs, nurses notes. I considered the following discharge prescriptions or medication management in the emergency department I discussed and recommended Over The Counter medications. ED course: 53-year-old man comes emergency department for laceration of right forehead after accidentally hitting 1/5 wheel hitch. No LOC there is a jagged 4 cm laceration to the right forehead with minimal bleeding and mildly contaminated. Area was cleansed and with standing and iodine emergency department laceration was repaired at bedside with 3 sutures of Prolene. Td was updated. CT scan of the head showing no acute intracranial abnormality. Wound was cleaned and bacitracin was placed patient was advised to follow-up with PCP for suture removals in about 7 days. Continue Tylenol Motrin, return to the emergency department worsening of symptoms.. 09/06 10:26 Order name: CT Head Brain wo Cont; Complete Time: 11:57 j9 09/06 10:28 Order name: Dressing - Wound; Complete Time: 12:25 j9 09/06 10:28 Order name: Gloves, Sterile; Complete Time: 11:09 jj9 09/06 10:28 Order name: Prolene, Sutures; Complete Time: 11:09 jj9 09/06 10:28 Order name: Setup Suture Tray; Complete Time: 11: j9 Administered Medications: 11:30 Drug: Lidocaine-Epinephrine Infiltration -1%: (1:100,000) 10 ml 20 ml Infiltration jl7 bolus; to bedside {Note: administered by ERD.} Volume: 20 ml; Route: Infiltration; 12:25 Follow up: Response: No adverse reaction jl7 12:15 Drug: TDVAX 0.5 ml IM once Route: IM; Site: right deltoid; jl7 12:25 Follow up: Response: No adverse reaction jl7 Disposition Summary: 09/06/24 11:58 Discharge Ordered Notes: Location: Home jj9 Problem: new jj9 Symptoms: have improved jj9 Condition: Stable jj9 Diagnosis - Laceration without foreign body of scalp jj9 Followup: jj9 - With: Private Physician - When: - Reason: Wound Recheck, Staple/Suture removal Discharge Instructions: - Discharge Summary Sheet jj9 - Facial Laceration j9 Forms: - Medication Reconciliation Form jj9 - Antibiotic Education j - Prescription Opioid Use j - Patient Portal Instructions j9 - Leadership Thank You Letter jj9 Signatures: Dispatcher [employer] EDMS Kim Morales, RN RN Grace Romero RN RN jl7 Hossein Salmon MD MD jj9 Corrections: (The following items were deleted from the chart) 10:35 10:25 Head Angio+CT.RAD.BRZ ordered. EDAK EDMS
--- NOTE | 2024-09-06 11:59 | ER ---
Nurse's Notes [facility] Name: Homer Cuenca Age: 53 yrs Sex: Male : 1970 Arrival Date: 09/06/2024 Time: 09:20 Bed 10 Private MD: Diagnosis: Laceration without foreign body of scalp Presentation: 09/06 10:12 Chief complaint: Hit head on trailer hitch 1-2 hrs ago, laceration noted to top of hb head, bleeding controlled. Negative LOC. Coronavirus screen: At this time, the client does not indicate any symptoms associated with coronavirus-19. Ebola Screen: No symptoms or risks identified at this time. Complicating Factors: There are no complicating factors for this patient. Initial Sepsis Screen: Does the patient meet any 2 criteria? No. Patient's initial sepsis screen is negative. Does the patient have a suspected source of infection? No. Patient's initial sepsis screen is negative. Risk Assessment: Do you want to hurt yourself or someone else? Patient reports no desire to harm self or others. Onset of symptoms was September 06, 2024. 10:12 Method Of Arrival: Ambulatory hb 10:12 Acuity: KATRINA 4 hb Historical: - Allergies: 10:14 No Known Allergies; hb - PMHx: 10:14 Asthma; Chronic obstructive lung disease; hb - PSHx: 10:14 None; hb - Immunization history:: Adult Immunizations up to date. - Infectious Disease History:: Denies. - Social history:: Smoking status: Patient denies any tobacco usage or history of. Screenin:45 [facility] ED Fall Risk Assessment (Adult) History of falling in the last 3 months, jl7 including since admission No falls in past 3 months (0 pts) Confusion or Disorientation No (0 pts) Intoxicated or Sedated No (0 pts) Impaired Gait No (0 pts) Mobility Assist Device Used No (0 pt) Altered Elimination No (0 pt) Score/Fall Risk Level 0 - 2 = Low Risk Oriented to surroundings, Maintained a safe environment. Abuse screen: Denies threats or abuse. Denies injuries from another. Nutritional screening: No deficits noted. Tuberculosis screening: No symptoms or risk factors identified. Assessment: 10:45 General: Appears in no apparent distress. uncomfortable. Pain: Complains of pain in jl7 head Pain currently is 7 out of 10 on a pain scale. Neuro: Level of Consciousness is awake, alert, obeys commands, Oriented to person, place, time, situation. Cardiovascular: Patient's skin is warm and dry. Respiratory: Airway is patent Respiratory effort is even, unlabored, Respiratory pattern is regular, symmetrical. Derm: Skin is pink, warm \T\ dry. Musculoskeletal: Swelling absent. Injury Description: Laceration sustained to top of head is jagged, 0.5 to 2.5 cm long, was sustained 30-60 minutes ago. is bleeding no active bleeding noted. Vital Signs: 10:12 BP 122 / 88; Pulse 67; Resp 16; Temp 98.3(O); Pulse Ox 100% ; Weight 92.99 kg; Height 5 hb ft. 10 in. ; Pain 7/10; 12:00 BP 135 / 88; Pulse 65; Resp 15; Pulse Ox 100% ; jl7 10:12 Body Mass Index 29.41 (92.99 kg, 177.8 cm) hb 10:12 Pain Scale: Adult hb ED Course: 09:22 Patient arrived in ED. im 10:14 Triage completed. hb 10:14 Arm band placed on. hb 10:15 Hossein Salmon MD is Attending Physician. jj9 10:30 Grace Romero RN is Primary Nurse. jl7 10:36 CT Head Brain wo Cont In Process Unspecified. EDMS 10:45 Patient has correct armband on for positive identification. Provided Education on: use jl7 of call stanley. 11:30 Assist provider with laceration repair on top of head that was between 2.6 to 7.5 cm jl7 using sutures. Set up tray. Performed by Hossein Salmon MD Dressed with Neosporin, Patient tolerated well. 12:29 Patient did not have IV access during this emergency room visit. jl7 Administered Medications: 11:30 Drug: Lidocaine-Epinephrine Infiltration -1%: (1:100,000) 10 ml 20 ml Infiltration jl7 bolus; to bedside {Note: administered by ERD.} Volume: 20 ml; Route: Infiltration; 12:25 Follow up: Response: No adverse reaction jl7 12:15 Drug: TDVAX 0.5 ml IM once Route: IM; Site: right deltoid; jl7 12:25 Follow up: Response: No adverse reaction jl7 Medication: 12:00 Vaccine Information Statement (VIS) provided today. Questions and/or concerns blaine addressed. VIS edition date: January 25, 2021. Outcome: 11:58 Discharge ordered by jj9 12:29 Discharged to home ambulatory, blaine 12:29 Condition: stable 12:29 Discharge instructions given to patient, Instructed on discharge instructions, follow up and referral plans. Demonstrated understanding of instructions, follow-up care, 12:29 Patient left the ED. [email or web address] Signatures: Dispatcher [employer] EDMS Kim Morales, RN RN Grace Romero RN RN jl7 Judit Gaviria Julio, MD MD jj9
[2024-09-06] MEDS ORDERED: TDAP (DIPHTH,PERTUSS(ACELL),TET VAC) 0.5 ML VIAL IMVAC ONE (12:03)
[2024-09-06 14:19] VITALS: TEMP 98.3; O2SAT 100
[2024-09-06 14:20] VITALS: BP 135/88
== END 2024-09-06 12:29 | disposition home or self-care (01) ==
LOC: ER 09:20
DX: S01.81XA Laceration without foreign body of other part of head, initial encounter (principal); W22.8XXA Striking against or struck by other objects, initial encounter
CPT/HCPCS: 70450